=== PATIENT | male | born 1970 | race Asian ===

== ENCOUNTER 2019-03-27 15:11 | Emergency (ER) | payer BC ==
[2019-03-27 15:29] VITALS: BP 117/81
--- NOTE | 2019-03-27 15:40 | UC ---
UC General HPI - HPI Summary HPI Summary: 48-year-old male presents with 2 complaints. The first of which is a rash that is chronic in nature and recurring on his left hand. He has been diagnosed with dyshidrotic eczema in the past and uses topical steroids that he would like refill. The second issue is more acute. He states that he developed pain in the left mid foot last night. He denies any history of trauma and states the pain is much better now without treatment. He does have a history of gout for which she took indomethacin a year ago. He has not taken any today. - History of Current Complaint Chief Complaint: UCGeneralIllness Stated Complaint: LEFT FOOT PAIN, AND SKIN IRRITATION Time Seen by Provider: 03/27/19 15:23 Hx Obtained From: Patient Pain Intensity: 0 - Allergy/Home Medications Allergies/Adverse Reactions: Allergies Allergy/AdvReac Type Severity Reaction Status Date / Time No Known Allergies Allergy Verified 03/27/19 15:21 Home Medications: Home Medications Lisinopril 10 mg PO DAILY 03/27/19 [History Confirmed 03/27/19] PMH/Surg Hx/FS Hx/Imm Hx - Additional Past Medical History Additional PMH: Gout, dyshidrotic eczema Previously Healthy: Yes - Surgical History Surgical History: Yes Surgery Procedure, Year, and Place: 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 Negative: Bruising Motor: Negative: Decreased ROM Musculoskeletal: Positive: Arthralgia, Decreased ROM. Negative: Edema, Myalgia Neurological: Positive: Negative Physical Exam Triage Information Reviewed: Yes Appearance: Well-Appearing, No Pain Distress, Well-Nourished Vital Signs: Initial Vital Signs Temp 98.9 F 03/27/19 15:22 Pulse 71 03/27/19 15:22 Resp 18 03/27/19 15:22 BP 117/81 03/27/19 15:22 Pulse Ox 96 03/27/19 15:22 Eye Exam: Normal ENT: Positive: Hearing grossly normal Respiratory: Positive: Lungs clear Cardiovascular: Positive: RRR Musculoskeletal: Positive: Other: - L foot with min tenderness to the lateral midfoot without erythema, warmth or swelling. Bears wt without pain. Neurological Exam: Normal Psychological Exam: Normal Skin Exam: Other - Left hand at the radial aspect of the index finger, first webspace with a rash that is thickened, scaly appearing and pruritic Diagnostics - Radiology L foot Radiology Interpretation Completed By: Radiologist - Neg for fracture. Course/Dx - Course Course Of Treatment: Musculoskeletal pain without trauma. No evidence for gout. Weight-bear as with minimal discomfort at present. X-rays negative. Continue NSAID. Prescribed betamethasone for the hand. - Diagnoses Provider Diagnosis: Left foot pain, Dyshidrotic eczema Discharge - Sign-Out/Discharge Documenting (check all that apply): Patient Departure All imaging exams completed and their final reports reviewed: Yes - Discharge Plan Condition: Improved Disposition: HOME Prescriptions: Betamethasone Dip 0.05% ON(NF) [Betamethasone Dipr 0.05% OINT(NF)] 1 applic .SEE ORDER BID PRN #1 tube PRN Reason: Hand rash Indomethacin 50 mg PO TID PRN #30 capsule PRN Reason: Pain Patient Education Materials: Dyshidrotic Eczema (ED), Metatarsalgia (DC) Referrals: Mariano Gruber MD [Primary Care Provider] - Additional Instructions: Use indomethacin sparingly as more frequent use can interact with your lisinopril. Apply the prescribed ointment and cover with a glove before bedtime. Return with increased pain, redness, swelling, worse or other concerns. Follow-up with your doctor as needed. - Billing Disposition and Condition Condition: IMPROVED Disposition: Home
== END 2019-03-27 16:17 | disposition home or self-care (01) ==
LOC: UCEAST 15:11
DX: L30.1 Dyshidrosis [pompholyx] (principal); M79.672 Pain in left foot
CPT/HCPCS: 99212; G0463

== ENCOUNTER 2019-09-13 15:49 | Emergency (ER) | payer BC ==
[2019-09-13 15:59] VITALS: BP 163/92
--- NOTE | 2019-09-13 16:09 | UC ---
Lower Extremity/Ankle HPI - HPI Summary HPI Summary: ONSET ONE WEEK AGO OF PAIN TO THE BOTTOM OF HIS LEFT FOOT AT THE METATARSAL HEADS. STATES HE WAS TREATED FOR GOUT SEVERAL TIMES IN THE PAST WITH INDOMETHACIN SO HE TOOK THIS 3 TIMES A DAY FOR 5 DAYS AND STATES THE PAIN WENT AWAY. THIS MORNING HE WOKE UP WITH PAIN AND REDNESS ON THE TOP OF HIS LEFT FOOT. NOTICED A FULLNESS IN THE INTERDIGITAL SPACE BETWEEN HIS GREAT TOE AND SECOND TOE. NO PAIN WITH WEIGHTBEARING/AMBULATING, ONLY WITH PALPATION OF THE RED AREA. NO TRAUMA. - History of Current Complaint Chief Complaint: UCLowerExtremity Stated Complaint: LT FOOT PAIN Time Seen by Provider: 09/13/19 15:53 Hx Obtained From: Patient Onset/Duration: Gradual Onset, Lasting Days, Still Present Severity Initially: Moderate Severity Currently: Moderate Pain Intensity: 0 Pain Scale Used: 0-10 Numeric Aggravating Factor(s): Other - PALPATION Alleviating Factor(s): Rest Able to Bear Weight: Yes - Allergies/Home Medications Allergies/Adverse Reactions: Allergies Allergy/AdvReac Type Severity Reaction Status Date / Time No Known Allergies Allergy Verified 09/13/19 15:59 PMH/Surg Hx/FS Hx/Imm Hx Cardiovascular History: Hypertension - Surgical History Surgical History: Yes Surgery Procedure, Year, and Place: 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 - Family History Known Family History: Positive: Non-Contributory - Social History Alcohol Use: Rare Substance Use Type: None Smoking Status (MU): Never Smoked Tobacco Review of Systems All Other Systems Reviewed And Are Negative: Yes Constitutional: Positive: Negative Skin: Positive: Other - ERYTHEMA Respiratory: Positive: Negative Cardiovascular: Positive: Negative Gastrointestinal: Positive: Negative Musculoskeletal: Positive: Arthralgia Physical Exam Triage Information Reviewed: Yes Appearance: Well-Appearing, No Pain Distress, Well-Nourished Vital Signs: Initial Vital Signs Temp 98.2 F 09/13/19 15:55 Pulse 66 09/13/19 15:55 Resp 16 09/13/19 15:55 BP 163/92 09/13/19 15:55 Pulse Ox 97 09/13/19 15:55 Vital Signs Reviewed: Yes Eyes: Positive: Conjunctiva Clear ENT: Positive: Hearing grossly normal Dental: Positive: Gross Decay/Caries @ Neck: Positive: Supple, Nontender, No Lymphadenopathy Respiratory: Positive: No respiratory distress, No accessory muscle use Cardiovascular: Positive: Pulses Normal Abdomen Description: Positive: Soft Musculoskeletal: Positive: ROM Intact, Edema @ - SLIGHT EDEMA AND TENDER <1CM NODULE INTERDIGITAL SPACE BETWEEN 2ND AND 3RD TOES LEFT FOOT. Neurological: Positive: Alert Psychological: Positive: Age Appropriate Behavior Skin: Positive: Other - ERYTHEMA DORSAL ASPECT LEFT FOOT OVERLYING 2ND, 3RD, 4TH DISTAL METATARSALS. Negative: Breakdown Diagnostics - Radiology LEFT FOOT XRAYS Radiology Interpretation Completed By: Radiologist Summary of Radiographic Findings: No fracture of the left foot is noted Lower Extremity Course/Dx - Course Course Of Treatment: PRESENTATION IS NOT CONSISTENT WITH GOUT. CONSIDER MORTONS NEUROMA VERSUS METATARSALGIA VERSUS EARLY CELLULITIS ALTHOUGH PRESENTASTION IS NOT TOTALLY CONSISTENT WITH ANY OF THESE CONDITIONS EITHER. FOOT X-RAY TODAY UNREMARKABLE. WILL TRY NAPROXEN TWICE DAILY FOR THE NEXT FEW DAYS AND HAVE PATIENT FOLLOW- UP WITH ORTHOPEDICS IF NOT IMPROVING. - Differential Dx/Diagnosis Provider Diagnosis: Left foot pain Discharge ED - Sign-Out/Discharge Documenting (check all that apply): Patient Departure All imaging exams completed and their final reports reviewed: Yes - Discharge Plan Condition: Stable Disposition: HOME Prescriptions: Naproxen [Naproxen 500 mg tab] 500 mg PO BID PRN #30 tablet PRN Reason: Pain Patient Education Materials: Metatarsalgia (DC) Referrals: Mraiano Gruber MD [Primary Care Provider] - If Needed Kvng Jimenez MD [Medical Doctor] - 2 Weeks Additional Instructions: FOOT X-RAY TODAY UNREMARKABLE. PRESENTATION NOT CONSISTENT WITH GOUT. WILL COVER FOR INFLAMMATORY CONDITION WITH NAPROXEN. TAKE IT TWICE DAILY EVERY DAY FOR THE NEXT FEW DAYS. IF YOUR SYMPTOMS WORSEN OR PERSIST YOU MAY BENEFIT FROM ORTHOPEDIC EVALUATION. RIGHT NOW YOUR PRESENTATION IS NOT CONSISTENT WITH INFECTION BUT IF THE REDNESS SPREADS YOU MAY BENEFIT FROM ANTIBIOTICS ALTHOUGH WILL HOLD OFF FOR NOW. YOU MAY CALL ME HERE ON Sunday IF YOU HAVE ANY QUESTIONS ABOUT THE COURSE OF YOUR CONDITION. - Billing Disposition and Condition Condition: STABLE Disposition: Home
== END 2019-09-13 17:02 | disposition home or self-care (01) ==
LOC: UCEAST 15:49
DX: M79.672 Pain in left foot (principal); I10 Essential (primary) hypertension
CPT/HCPCS: 99212; G0463